=== PATIENT | male | born 1990 | race Two or more races ===

== ENCOUNTER 2018-06-30 00:15 | Emergency (ER) | payer BC, MEDICAID ==
[~2018-06-30] VITALS: Ht 172.7 cm; Wt 63.5 kg
--- NOTE | 2018-06-30 00:32 | NUR ---
PT A/OX4, PRESENTS TO THE ER C/O N/V/D SINCE AM 06/29/18. VSS. PT DENIES PAIN, C/P, SOB, DIZZINESS, HEADACHE.
--- NOTE | 2018-06-30 00:35 | NUR ---
EVETTE LANDEROS AT BEDSIDE FOR MSE.
[2018-06-30] MEDS ORDERED: ONDANSETRON 4 MG/2 ML VIAL ONE (00:43)
[2018-06-30] MEDS ORDERED: HYDROMORPHONE 1 MG/1 ML DISP.SYRIN ONE (00:43)
[2018-06-30] MEDS ORDERED: ONDANSETRON 4 MG/2 ML VIAL IV ONE (00:45)
[2018-06-30] MEDS ORDERED: IV NORMAL SALINE 1000 ML BAG IV ONE (00:45)
[2018-06-30] MEDS ORDERED: HYDROMORPHONE 1 MG/1 ML DISP.SYRIN IV ONE (00:45)
[2018-06-30 00:58] LABS: BASOPHILS % (AUTO) 0.2 % (0.0-2.0); EOSINOPHILS % (AUTO) 0.2 % (0.0-7.0); HEMATOCRIT 43.1 % (36.7-47.1); HEMOGLOBIN 14.7 g/dL (12.5-16.3); LYMPHOCYTES # (AUTO) 0.4 K/uL (20.0-40.0); LYMPHOCYTES % (AUTO) 3.5 % (20.5-51.5); MEAN CORPUSCULAR HEMOGLOBIN 30.1 uug (23.8-33.4); MEAN CORPUSCULAR HGB CONC 34 g/dL (32.5-36.3); MEAN CORPUSCULAR VOLUME 88.2 fL (73.0-96.2); MONOCYTES # (AUTO) 0.4 K/uL (2.0-10.0); MONOCYTES % (AUTO) 3.3 % (0.0-11.0); NEUTROPHILS # (AUTO) 11.6 K/uL (1.8-8.9); NEUTROPHILS % (AUTO) 92.8 % (38.5-71.5); PLATELET COUNT (AUTO) 158 K/uL (152-348); RED BLOOD CELL COUNT(AUTO) 4.89 MIL/uL (4.06-5.63); WHITE BLOOD COUNT (AUTO) 12.5 K/uL (3.6-10.2)
[2018-06-30 01:05] LABS: CREATININE 1.2 mg/dL (0.6-1.3)
[2018-06-30 01:10] LABS: BILIRUBIN,DIRECT 0.2 mg/dL (0.0-0.2); BILIRUBIN,TOTAL 1.1 mg/dL (0.2-1.0); TOTAL PROTEIN, SERUM 7.8 g/dL (6.4-8.2)
--- NOTE | 2018-06-30 02:00 | NUR ---
Patient discharged to home in stable conditon. Written and verbal after care instructions given. Patient verbalizes understanding of instructions. PT D/C W/ PRESCRIPTION. ALL BELONGINGS W/ PT. PT SELF-AMBULATED W/O DIFFICULTY. PT WILL BE DRIVEN HOME BY FRIEND IN PRIVATE VEHICLE. 18G IV ACCESS IN L AC REMOVED PRIOR TO D/C - INNER CANNULA INTACT.
[2018-06-30 02:01] VITALS: BP 120/63
== END 2018-06-30 02:03 | disposition home or self-care (01) ==
LOC: ER 00:19
DX: R19.7 Diarrhea, unspecified (principal); F17.200 Nicotine dependence, unspecified, uncomplicated; F12.10 Cannabis abuse, uncomplicated
CPT/HCPCS: 36415; 80048; 80076; 83690; 85025; 96374; 96375; 99284; J1170; J2405; A4663; J7030